=== PATIENT | female | born 1990 | race African-American/Black ===

== ENCOUNTER 2018-10-21 19:49 | Emergency (ER) | payer OTHER ==
[~2018-10-21] VITALS: Ht 162.6 cm; Wt 69.0 kg
[~2018-10-21 19:49] MED LIST: CIPROFLOXACIN500 M1 PO; FLAGYL500 MG PO; KEFLEX500 MG PO; MOBIC7.5 MG PO; NAPROSYN500 MG PO; NORFLEX100 MG PO; VISTARIL 25 MG25 M1 OR
[2018-10-21] MEDS ORDERED: KEFLEX500 M1 PO (20:26)
[2018-10-21] MEDS ORDERED: IBUPROFEN 600600 M1 PO (20:26)
[2018-10-21 21:20] VITALS: BP 112/68
== END 2018-10-21 21:21 | disposition home or self-care (01) ==
LOC: M.ERS 19:49
DX: S61.210A Laceration without foreign body of right index finger without damage to nail, initial encounter (principal); W29.0XXA Contact with powered kitchen appliance, initial encounter; Y92.89 Other specified places as the place of occurrence of the external cause; Y93.89 Activity, other specified; Y99.8 Other external cause status

== ENCOUNTER 2018-11-18 14:57 | Emergency (ER) | payer OTHER ==
[~2018-11-18] VITALS: Ht 162.6 cm; Wt 68.0 kg
[~2018-11-18 14:57] MED LIST changes: +IBUPROFEN 600600 M1 PO; +KEFLEX500 M1 PO
[2018-11-18 16:11] VITALS: BP 107/50
== END 2018-11-18 16:13 | disposition home or self-care (01) ==
LOC: M.ERS 14:57
DX: S61.211D Laceration without foreign body of left index finger without damage to nail, subsequent encounter (principal); X58.XXXD Exposure to other specified factors, subsequent encounter